=== PATIENT | female | born 1955 | race African-American/Black ===

== ENCOUNTER 2016-12-26 16:58 | Emergency (ER) | payer MEDICAID ==
[~2016-12-26] VITALS: Ht 160 cm; Wt 84.5 kg
[2016-12-26] MEDS ORDERED: hypertension PO (17:21)
[2016-12-26] MEDS ORDERED: DEXAMETHASONE SOD PHOS 4 MG/ML VIAL IM ONE (18:30)
[2016-12-26 19:38] VITALS: BP 129/88
== END 2016-12-26 19:39 | disposition home or self-care (01) ==
LOC: EMS 17:00
DX: L23.9 Allergic contact dermatitis, unspecified cause (principal); I10 Essential (primary) hypertension; E78.00 Pure hypercholesterolemia, unspecified
CPT/HCPCS: 96372; 99283; J1100

== ENCOUNTER 2017-01-05 12:42 | Inpatient (IN) | payer MEDICAID ==
[~2017-01-05] VITALS: Ht 160 cm; Wt 86.3 kg
[~2017-01-05 12:42] MED LIST: hypertension PO
[2017-01-05] MEDS ORDERED: DiphenhydrAMINE HCL 25 MG CAPSULE PO ONE (15:15)
[2017-01-05] MEDS ORDERED: SODIUM CHLORIDE 0.9% 1,000 ML IV ONE (18:30)
[2017-01-05 18:46] LABS: BASOPHILS # (AUTO) 0.06 K/uL (0.00-0.20); BASOPHILS % (AUTO) 0.4 % (0.0-2.0); EOSINOPHILS % (AUTO) 1.26 % (1.0-6.0); HEMATOCRIT 48.9 % (36-46); HEMOGLOBIN 15.9 g/dL (12.0-16.0); LYMPHOCYTES # (AUTO) 2.9 K/uL (1.0-4.8); LYMPHOCYTES % (AUTO) 18.5 % (22.0-44.0); MEAN CORPUSCULAR HEMOGLOBIN 31.6 pg (26.0-34.0); MEAN CORPUSCULAR HGB CONC 32.6 G/dL (31.0-37.0); MEAN CORPUSCULAR VOLUME 97 fL (80-100); MONOCYTES % (AUTO) 6.5 % (2.0-9.0); NEUTROPHILS # (AUTO) 11.6 K/uL (1.8-7.7); NEUTROPHILS % (AUTO) 73.4 % (40.0-70.0); PLATELET COUNT (AUTO) 342 K/uL (150-450); RED BLOOD CELL COUNT(AUTO) 5.03 MIL/uL (4.00-5.20); RED CELL DISTRIBUTION WIDTH 12.9 % (11.5-14.5); WHITE BLOOD COUNT (AUTO) 15.8 K/uL (4.5-11.0)
[2017-01-05 19:12] LABS: ALANINE AMINOTRANSFERASE 31 U/L (12-78); ALBUMIN 3.2 g/dL (3.4-5.0); ANION GAP 9 mmol/L (8-16); ASPARTATE AMINOTRANSFERASE 22 U/L (15-37); BILIRUBIN,TOTAL 1.4 mg/dL (0.1-1.0); CALCIUM, TOTAL 9.7 mg/dL (8.8-10.5); CARBON DIOXIDE 35 mmol/L (22-29); CHLORIDE 92 mmol/L (98-107); GLOMERULAR FILTR. RATE CALC > 60 mL/min (>60); SODIUM SERUM 136 mmol/L (136-145); TOTAL PROTEIN, SERUM 8.7 g/dL (6.4-8.2); UREA NITROGEN, BLOOD 10 mg/dL (7-18)
[2017-01-05] MEDS ORDERED: MORPHINE SULFATE 2 MG/ML SYRINGE IVP ONE ×2 (19:45→21:30)
[2017-01-05 19:52] LABS: ERYTHROCYTE SEDIMENTATION RATE 18 MM/HR (0-20)
[2017-01-05] MEDS ORDERED: POTASSIUM CHLORIDE 10% 40 MEQ/30 ML LIQUID UDCUP PO ONE (21:30)
[2017-01-05] MEDS ORDERED: ONDANSETRON HCL 4 MG/2 ML VIAL IVP PRN (21:30)
[2017-01-05] MEDS ORDERED: 0.9% SODIUM CHLORIDE 10 ML SYRINGE IVP PRN (21:30)
[2017-01-05] MEDS ORDERED: CLOBETASOL 0.05% 15 GM CREAM TP ONE (21:30)
[2017-01-05] MEDS ORDERED: ACETAMINOPHEN 325 MG TABLET PO PRN (21:30)
[2017-01-05 23:21] VITALS: BP 119/56
[2017-01-05] MEDS: HYDROCODONE/ACETAMINOPHEN 5-325 MG TABLET PO PRN (23:54)
[2017-01-06] MEDS ORDERED: 0.9% SODIUM CHLORIDE 10 ML SYRINGE IVP PRN
[2017-01-06] MEDS: DiphenhydrAMINE HCL 25 MG CAPSULE PO PRN ×2 (00:38→06:03)
[2017-01-06 04:48] VITALS: BP 122/73
[2017-01-06] MEDS: HYDROCODONE/ACETAMINOPHEN 5-325 MG TABLET PO PRN ×3 (04:54→20:17)
[2017-01-06 05:48] LABS: BASOPHILS # (AUTO) 0.04 K/uL (0.00-0.20); BASOPHILS % (AUTO) 0.3 % (0.0-2.0); EOSINOPHILS # (AUTO) 0.04 K/uL (0.00-0.70); EOSINOPHILS % (AUTO) 0.31 % (1.0-6.0); HEMATOCRIT 38.9 % (36-46); HEMOGLOBIN 12.7 g/dL (12.0-16.0); LYMPHOCYTES # (AUTO) 1.5 K/uL (1.0-4.8); LYMPHOCYTES % (AUTO) 10.7 % (22.0-44.0); MEAN CORPUSCULAR HEMOGLOBIN 31.7 pg (26.0-34.0); MEAN CORPUSCULAR HGB CONC 32.7 G/dL (31.0-37.0); MEAN CORPUSCULAR VOLUME 97 fL (80-100); MONOCYTES # (AUTO) 0.8 K/uL (0.1-1.0); MONOCYTES % (AUTO) 5.4 % (2.0-9.0); NEUTROPHILS # (AUTO) 11.9 K/uL (1.8-7.7); NEUTROPHILS % (AUTO) 83.3 % (40.0-70.0); PLATELET COUNT (AUTO) 295 K/uL (150-450); RED BLOOD CELL COUNT(AUTO) 4.01 MIL/uL (4.00-5.20); RED CELL DISTRIBUTION WIDTH 12.8 % (11.5-14.5); WHITE BLOOD COUNT (AUTO) 14.2 K/uL (4.5-11.0)
[2017-01-06 06:05] LABS: ALANINE AMINOTRANSFERASE 25 U/L (12-78); ALBUMIN 2.5 g/dL (3.4-5.0); ANION GAP 8 mmol/L (8-16); ASPARTATE AMINOTRANSFERASE 15 U/L (15-37); BILIRUBIN,TOTAL 1.2 mg/dL (0.1-1.0); CALCIUM, TOTAL 8.4 mg/dL (8.8-10.5); CARBON DIOXIDE 31 mmol/L (22-29); CHLORIDE 96 mmol/L (98-107); CREATININE 0.89 mg/dL (0.60-1.30); GLOMERULAR FILTR. RATE CALC > 60 mL/min (>60); POTASSIUM 3.1 mmol/L (3.5-5.1); SODIUM SERUM 135 mmol/L (136-145); TOTAL PROTEIN, SERUM 6.7 g/dL (6.4-8.2); UREA NITROGEN, BLOOD 9 mg/dL (7-18)
[2017-01-06 07:41] VITALS: BP 110/71
[2017-01-06] MEDS ORDERED: CLOBETASOL 0.05% 60 GM CREAM TP SCH (09:00)
[2017-01-06] MEDS ORDERED: HydrOXYzine HCL 25 MG TABLET PO ONE (09:00)
[2017-01-06 09:56] LABS: APPEARANCE,URINE CLEAR (CLEAR); GLUCOSE, URINE (UA) NEGATIVE (NEGATIVE); KETONES,URINE TRACE mg/dL (NEGATIVE); LEUKOCYTE ESTERASE ,URINE NEGATIVE (NEGATIVE); OCCULT BLOOD,URINE NEGATIVE (NEGATIVE); PH,URINE 7.5 (5.0-8.0); PROTEIN,URINE TRACE (NEGATIVE)
[2017-01-06 10:15] LABS: ADD UA MICROSCOPIC YES
[2017-01-06 10:17] LABS: RBC,URINE None Seen /HPF (0-2); SQUAMOUS EPITHELIAL CELL,UR Moderate /LPF (None Seen); WBC,URINE 0-2 /HPF (0-5)
[2017-01-06] MEDS: LORATADINE 10 MG TABLET PO SCH (10:57)
[2017-01-06] MEDS: PredniSONE 10 MG TABLET PO SCH (10:57)
[2017-01-06] MEDS: CLOTRIMAZOLE 1% 15 GM CREAM TP SCH ×2 (10:58→20:18)
[2017-01-06] MEDS: FLUOCINONIDE 0.05% TP SCH ×2 (10:59→20:18)
[2017-01-06] MEDS: CLOBETASOL 0.05% 15 GM OINTMENT TP SCH ×3 (10:59→20:18)
[2017-01-06 11:37] VITALS: BP 150/89
[2017-01-06 15:27] VITALS: BP 128/72
[2017-01-06] MEDS: HYDROCORTISONE 2.5% 30 GM CREAM TP SCH ×2 (15:49→20:18)
[2017-01-06] MEDS ORDERED: POTASSIUM CHL 10 MEQ/WATER 50 ML IV PRN (19:30)
[2017-01-06] MEDS: POTASSIUM CHLORIDE 20 MEQ ER TABLET PO PRN (19:31)
[2017-01-06 20:06] VITALS: BP 127/74
[2017-01-06 23:02] VITALS: BP 111/74
[2017-01-07 04:14] VITALS: BP 117/67
[2017-01-07 07:30] VITALS: BP 126/76
[2017-01-07] MEDS: DiphenhydrAMINE HCL 25 MG CAPSULE PO PRN (09:04)
[2017-01-07] MEDS: LORATADINE 10 MG TABLET PO SCH (09:04)
[2017-01-07] MEDS: PredniSONE 10 MG TABLET PO SCH (09:04)
[2017-01-07] MEDS: HYDROCHLOROTHIAZIDE 25 MG TABLET PO SCH (09:04)
[2017-01-07] MEDS: FLUOCINONIDE 0.05% TP SCH ×2 (09:05→20:07)
[2017-01-07] MEDS: HYDROCORTISONE 2.5% 30 GM CREAM TP SCH ×2 (09:05→20:07)
[2017-01-07] MEDS: CLOBETASOL 0.05% 15 GM OINTMENT TP SCH ×3 (09:05→20:08)
[2017-01-07] MEDS: CLOTRIMAZOLE 1% 15 GM CREAM TP SCH ×2 (09:05→20:07)
[2017-01-07 11:25] VITALS: BP 118/77
[2017-01-07 16:40] VITALS: BP 120/79
[2017-01-07 20:00] VITALS: BP 129/78
[2017-01-07] MEDS: CycloSPORINE,MODIFIED 100 MG CAPSULE PO SCH (20:06)
[2017-01-07] MEDS: ERYTHROMYCIN 250 MG DR TABLET PO SCH (20:07)
[2017-01-07] MEDS: POTASSIUM CHLORIDE 20 MEQ ER TABLET PO PRN (20:07)
[2017-01-07] MEDS ORDERED: CYANOCOBALAMIN 1,000 MCG/ML VIAL IM ONE (21:00)
[2017-01-08 00:22] VITALS: BP 126/79
[2017-01-08 04:00] VITALS: BP 136/75
[2017-01-08] MEDS: DiphenhydrAMINE HCL 25 MG CAPSULE PO PRN (05:38)
[2017-01-08 07:50] VITALS: BP 143/89
[2017-01-08] MEDS: POTASSIUM CHLORIDE 20 MEQ ER TABLET PO PRN (08:34)
[2017-01-08] MEDS: LORATADINE 10 MG TABLET PO SCH (08:35)
[2017-01-08] MEDS: HYDROCHLOROTHIAZIDE 25 MG TABLET PO SCH (08:35)
[2017-01-08] MEDS: CLOTRIMAZOLE 1% 15 GM CREAM TP SCH (08:36)
[2017-01-08] MEDS: ERYTHROMYCIN 250 MG DR TABLET PO SCH (08:36)
[2017-01-08] MEDS: HYDROCORTISONE 2.5% 30 GM CREAM TP SCH (08:36)
[2017-01-08] MEDS: FLUOCINONIDE 0.05% TP SCH (08:36)
[2017-01-08] MEDS: CycloSPORINE,MODIFIED 100 MG CAPSULE PO SCH (08:36)
[2017-01-08] MEDS: HYDROCODONE/ACETAMINOPHEN 5-325 MG TABLET PO PRN (08:42)
[2017-01-08] MEDS ORDERED: CLOBETASOL 0.05% 60 GM OINTMENT TP SCH (09:00)
[2017-01-08 11:25] VITALS: BP 141/79
[2017-01-08] MEDS ORDERED: [UNRECOGNIZED DRUG - CODE] PO (13:11)
[2017-01-08] MEDS ORDERED: CYCL100C21 PO (13:13)
[2017-01-08] MEDS ORDERED: LORA10TA7 PO (13:16)
[2017-01-08] MEDS ORDERED: CLOB60CR12 TP (13:22)
[2017-01-08] MEDS ORDERED: HYDR4CRE PR (13:29)
[2017-01-08] MEDS ORDERED: CLOT15CR5 TP (13:33)
[2017-01-08] MEDS ORDERED: FLUO15CR2 TP (13:35)
[2017-01-10] MEDS ORDERED: PredniSONE 10 MG TABLET PO SCH (09:00)
[2017-01-14] MEDS ORDERED: PredniSONE 10 MG TABLET PO SCH (09:00)
[2017-01-18] MEDS ORDERED: PredniSONE 10 MG TABLET PO SCH (09:00)
[2017-01-22] MEDS ORDERED: PredniSONE 10 MG TABLET PO SCH (09:00)
[2017-01-26] MEDS ORDERED: PredniSONE 10 MG TABLET PO SCH (09:00)
== END 2017-01-08 14:42 | disposition home or self-care (01) | DRG 381 ==
LOC: EMS 12:43 → 6N 21:51
PROVIDERS: ADMIT Family Medicine; ATTEND Family Medicine
PROC: 0HBHXZX Excision of Right Upper Leg Skin, External Approach, Diagnostic (ICD-10-PCS; principal; 2017-01-06)
DX: L51.1 Stevens-Johnson syndrome (principal); R65.10 Systemic inflammatory response syndrome (SIRS) of non-infectious origin without acute organ dysfunction; L40.1 Generalized pustular psoriasis; I10 Essential (primary) hypertension; B86 Scabies; D72.829 Elevated white blood cell count, unspecified; E78.00 Pure hypercholesterolemia, unspecified; L53.8 Other specified erythematous conditions; E66.9 Obesity, unspecified; E87.6 Hypokalemia; E78.5 Hyperlipidemia, unspecified; Z82.49 Family history of ischemic heart disease and other diseases of the circulatory system; Z68.33 Body mass index [BMI] 33.0-33.9, adult; Z79.899 Other long term (current) drug therapy
CPT/HCPCS: 83735; 84132; 85651; 86140; 87040; 96374; 96375; 96376; 99285; J2270; J2405; J3420; J7030; J7502